=== PATIENT | female | born 1980 | race African-American/Black ===

== ENCOUNTER 2016-10-17 07:52 | Inpatient (IN) ==
[2016-10-17] MEDS ORDERED: LACTATED RINGERS 1,000 ML IV SCH (09:00)
[2016-10-17] MEDS ORDERED: CITRIC ACID/SODIUM CITRATE 30 ML UDCUP PO ONE (09:09)
[2016-10-17] MEDS ORDERED: ceFAZolin 2,000 MG in SODIUM CHLORIDE 0.9% 100 ML IV ONE (09:09)
[2016-10-17] MEDS ORDERED: FAMOTIDINE 20 MG/2 ML VIAL IV ONE (09:09)
[2016-10-17 09:34] LABS: Basophils % 0.2 % (0.0-0.8); Eosinophils % 0.5 % (0.00-10.9); Hematocrit 37.3 VOL% (35.7-47.0); Hemoglobin 12.8 GM/DL (12.0-16.0); Immature Granulocytes % 1.1 %; Immature Granulocytes Absolute 0.07 #; Lymphocytes # 1.1 10*3/uL (1.4-4.0); Lymphocytes % 17.1 % (21.3-54.2); Mean Corpuscular HGB Conc 34.3 GM/DL (32-36); Mean Corpuscular Hemoglobin 31 PG (27-34); Mean Corpuscular Volume 90.5 FL (87-102); Mean Platelet Volume 11.1 FL (9.6-12.0); Monocytes # 0.5 10*3/uL (0.11-0.8); Monocytes % 7.7 % (1.7-12.7); Neutrophils # 4.6 10*3/uL (1.4-7.4); Neutrophils % 73.4 % (38.7-73.9); Platelet Count 156 T/CUMM (130-400); Red Blood Count 4.12 MC/CUMM (3.8-5.5); Red Cell Distribution Width 13.4 % (9.3-17.3); White Blood Count 6.2 T/CUMM (4-12)
[2016-10-17] MEDS ORDERED: OXYTOCIN/LR 20 UNIT/1,000 ML BAG IV ONE ×2 (09:45→11:10)
--- NOTE | 2016-10-17 10:10 | Ultrasound Report ---
History: Leaking amniotic fluid Date: 10/17/2016 Study: Obstetrical ultrasound limited Comparison exam: No previous similar study Real-time ultrasound images are captured and archived. There is a single intrauterine fetus in vertex presentation with a heart rate of 126 bpm. There is oligohydramnios with ELBA of 3.4 cm. The maximum vertical pocket measures 1.9 cm. The placenta is left lateralized without obvious previa. Impression: Single intrauterine fetus in vertex presentation with cardiac activity. Oligohydramnios with ELBA of 3.4 cm PROCEDURE INTERPRETED AT [facility] DEPARTMENT OF RADIOLOGY Final Report Signed by: Dr. Padmini Galvez
--- NOTE | 2016-10-17 11:06 | Operative Note ---
Date of procedure: 10/17/16 Pre-op diagnosis: 37 week gestation SROM labor previous Post-op diagnosis: same Procedure: This is Dr. Herrera dictating operative note: Preoperative diagnosis intrauterine intrauterine at 37 weeks 2. Spontaneous rupture membranes 3. Undesired future fertility 4. Labor 5. Previous Postoperative diagnosis same Procedure repeat low transverse section 2. Bilateral tubal interruption via Filshie clip placement 2 on each side Surgeon Dr. Herrera Anesthesia spinal Findings liveborn [male] infant 7 pounds Apgars 8 9 Complications none Estimated blood loss [400] mL Disposition patient to recovery room in [stable] condition. to nursery in [stable] condition Operative description: Patient was told by Dr. Jesus that the anterior wall of the abdomen might be adherent to the fundus of the uterus and that she had a large posterior fibroid After the risks benefits and alternatives were explained to the patient in detail and informed consent was obtained, the patient was taken to the operating room where she was placed in the supine position. After achieving appropriate anesthesia the abdomen was prepped and draped in the usual sterile fashion. A Bledsoe catheter was placed without difficulty. After the appropriate time out and after adequate anesthesia was ascertained a generous Pfannenstiel skin incision was made in the event there was adherence to the uterus to the anterior abdominal wall and was extended around the previous incision and carried down through the subcutaneous tissue down to the fascia. The fascia was nicked in the midportion and undermined and incised both laterally and cephalad using sharp dissection with the curved Rubio scissors. 2 [place] clamps were used to elevate the rectus fascia superiorly which was bluntly and sharply dissected away from the rectus muscle below. This was repeated inferiorly. The rectus muscles were then bluntly in the midline the peritoneum identified grasped with 2 curved hemostats and entered sharply using the curved Metzenbaum scissors. A bladder blade was then placed in the pelvis and a bladder flap was created off the lower uterine segment using sharp dissection with the Metzenbaum scissors. The bladder blade was then repositioned. A transverse incision was made across the lower uterine segment down to the amnion. Entry into the amnion revealed [clear] amniotic fluid. The uterine incision was then extended laterally using bilateral finger fractionation. Upon palpation the presenting part was [vertex] which was gently elevated out of the pelvis and delivered onto the abdominal wall using appropriate fundal pressure. The 's nose and oropharynx were bulb and DeLee suctioned and the had spontaneous cry delivery. The cord was doubly clamped and cut and the was handed over to the team for care. Cord blood was obtained. The placenta was delivered manually and IV Pitocin antibiotics and Zofran were begun. The uterus was then exteriorized and placed in a wet laparotomy sponge. 2 fingers wrapped around a wet laparotomy sponge were used to remove all residual membranes from the uterine cavity. The uterus was then closed in 2 layers. The first layer of myometrium was closed with #1 Monocryl suture in an inner locking fashion beginning at both angles and overlapping slightly in the midline. The second layer of myometrium was closed with #1 Monocryl suture in a running imbricating stitch beginning at the right angle and continuing the length of the uterine incision. Hemostasis was noted to be excellent. The ampullary portion of each tube was identified and double clipped on each side with Filshie clips right angle to the fallopian tube. The posterior cul-de-sac was then irrigated and cleansed with a wet laparotomy sponge and the uterus was placed back in the abdominal cavity. Both pericolic gutters were then irrigated and cleansed with a wet lap sponge. The tubal sites were inspected and noted to be intact the uterine incision was then re-irrigated and again noted to be hemostatic. All counts were noted to be correct. The subcutaneous tissue was then closed using 3-0 Vicryl suture in a running fashion. The subfascial area was made hemostatic using electrocautery and closed with #1 PDS suture in a running fashion beginning at both angles and overlapping slightly in the midline. The subcutaneous tissue was irrigated and made hemostatic using electrocautery and closed with 2-0 Vicryl suture in a running fashion and the skin was closed with wide skin anne and a sterile pressure bandage was applied to the wound. All sponge needle and instrument counts were correct -3 at the end of the procedure. The patient's urine was [clear] both at the beginning in the end of the procedure. The patient was taken to the recovery room in stable condition Anesthesia: spinal Surgeon / Physician: Kev Herrera Estimated blood loss: other (400) Specimens: none sent Condition: stable Disposition: floor Results - Labs CBC & BMP: 10/17/16 09:29 Discharge Plan - Discharge Medications No Action Vit No.130/Iron/Folic [ Vitamins] 1 each PO DAILY Docusate Sodium Cap [Colace Cap] 100 mg PO DAILY Metoprolol Tartrate 50 mg PO DAILY oxyCODONE/ACETAMINOPHEN 5-325 [Percocet 5-325] 1 mg PO DAILY MDD 2 - Follow Up or Referral - Forms/Instructions
--- NOTE | 2016-10-17 11:08 | OB/GYN History & Physical ---
History of Present Illness Chief complaint: 37 week gestation SROM previous labor History of present illness: Ms. Nickerson is a 35 year old female 2 para [address] Jesus at 37 weeks estimated gestational age who presented with spontaneous rupture membranes. Her nitrazine was equivocal she had an ultrasound performed which showed low ELBA. She was having regular uterine contractions. She is consequently admitted for repeat . Risks benefits alternatives explained patient detail and informed iconsent was obtained. Patient stated that Dr. Jesus felt like that her anterior abdominal wall may be fused to the fundus of the uterus decreasing the mobility of the uterus and that she had a large posterior fibroid. Home Medications Medication Instructions Recorded Confirmed Type Docusate Sodium Cap [Colace Cap] 100 mg PO DAILY 09/22/16 09/22/16 History Metoprolol Tartrate 50 mg PO DAILY 09/22/16 09/22/16 History Vit No.130/Iron/Folic 1 each PO DAILY 09/22/16 09/22/16 History [ Vitamins] oxyCODONE/ACETAMINOPHEN 5-325 1 mg PO DAILY MDD 2 09/22/16 09/22/16 History [Percocet 5-325] Allergies Allergy/AdvReac Type Severity Reaction Status Date / Time clindamycin [From Cleocin] Allergy RASH Verified 10/17/16 08:02 12 point system: reviewed and no additional remarkable complaints except as stated Medical,Surgical,& Family Hx - Social History Smoking Status: Never smoker 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 - Constitutional Vitals: Vital Signs Temp Pulse Resp BP 10/17/16 08:18 97.8 F 90 20 127/70 General appearance: no acute distress - Head Head exam: Present: normal inspection, normocephalic, atraumatic - Neck Neck exam: Present: normal inspection - Respiratory Respiratory exam: Present: clear to auscultation bilaterally - Breast Breasts: as per HPI Menstruation: as per HPI - Cardiovascular Cardiovascular exam: Present: regular rate and rhythm - GI/Abdominal GI/Abdominal exam: Present: normal bowel sounds - Extremities Exam Extremities exam: Present: normal inspection, normal capillary refill - Back Exam Back exam: Present: normal inspection - Neurological Exam Neurological exam: Present: alert, oriented X3 - Psychiatric Psychiatric exam: Present: normal affect, normal mood - Skin Skin exam: Present: normal color Assessment and Plan (1) with 37 weeks completed gestation Status: Acute Current Visit: Yes (2) Previous section Status: Acute Current Visit: Yes (3) Spontaneous rupture of membranes Status: Acute Current Visit: Yes (4) Uterine contractions Status: Acute Current Visit: Yes Results - Labs CBC & BMP: 10/17/16 09:29
[2016-10-17] MEDS ORDERED: oxyCODONE/ACETAMINOPHEN 5-325 MG TABLET PO PRN (11:10)
[2016-10-17] MEDS ORDERED: DIPH/TET/ACEL PERT BOOSTER VACCINE 0.5 ML VIAL IM ONE (11:10)
[2016-10-17] MEDS ORDERED: MEASLES/MUMPS/RUBELLA VACCINE 0.5 ML VIAL SUBCUT ONE (11:10)
[2016-10-17] MEDS ORDERED: BISACODYL 10 MG SUPP RECTAL PRN (11:10)
[2016-10-17] MEDS ORDERED: ACETAMINOPHEN 325 MG TABLET PO PRN (11:10)
[2016-10-17] MEDS ORDERED: WITCH HAZEL PADS 100/JAR TOP PRN (11:10)
[2016-10-17] MEDS ORDERED: LANOLIN 50% CREAM 0.3 OZ TUBE TOP PRN (11:10)
[2016-10-17] MEDS ORDERED: HYDROCORTISONE 2.5% RECTAL CREAM 30 GM TUBE TOP PRN (11:10)
[2016-10-17] MEDS ORDERED: RHO(D) IMMUNE GLOBULIN 300 MCG SYRINGE IM ONE (11:10)
[2016-10-17] MEDS ORDERED: BENZOCAINE 20%/MENTHOL 0.5% SPRAY 56 GM CAN TOP PRN (11:10)
[2016-10-17] MEDS ORDERED: ONDANSETRON 4 MG/2 ML VIAL IV PRN ×2 (11:10→11:16)
[2016-10-17] MEDS ORDERED: diphenhydrAMINE 50 MG/1 ML VIAL IV PRN (11:16)
[2016-10-17] MEDS ORDERED: MORPHINE 10 MG/10 ML VIAL ONE (11:22)
[2016-10-17] MEDS ORDERED: fentaNYL 100 MCG/2 ML VIAL ONE (11:22)
[2016-10-17] MEDS ORDERED: SODIUM CHLORIDE 0.9% 1,000 ML IV SCH (11:30)
--- NOTE | 2016-10-17 11:32 | Anesthesia Post-Op ---
Anesthesia Post OP - Post Ansesthetic Evaluation Patient seen in post op: Yes Resp: within normal limits CV: within normal limits Mental: within normal limits Temp: within normal limits [id number]-Gs-[id number]: within normal limits Nausea and Vomiting: within normal limits Pain: within normal limits
[2016-10-17 12:26] LABS: Apearance,Urine CLEAR (Clear); Bilirubin,Urine Negative (Negative); Blood, Urine Negative (Negative); Glucose,Urine (UA) Negative (Negative); Ketones,Urine Negative (Negative); Nitrite,Urine Negative (Negative); Protein,Urine Negative; Squamous Epithelial Cell,Urine Occasional /HPF (0-10); Urine Specific Gravity 1.001 (1.001-1.035); Urine Urobilinogen < 2.0 EU/DL (0.2-1.0)
[2016-10-17 12:28] LABS: Urine Color Light Yellow (Yellow)
[2016-10-17] MEDS: HYDROmorphone 2 MG/1 ML VIAL IV PRN ×2 (12:30→17:42)
[2016-10-17] MEDS: LACTATED RINGERS 1,000 ML IV SCH ×2 (15:30→23:45)
[2016-10-17] MEDS: oxyCODONE/ACETAMINOPHEN 5-325 MG TABLET PO PRN (20:34)
[2016-10-17] MEDS: SIMETHICONE CHEW 80 MG TABLET PO PRN (20:45)
[2016-10-17] MEDS: DOCUSATE SODIUM 100 MG CAPSULE PO SCH (21:08)
[2016-10-17] MEDS: IBUPROFEN 800 MG TABLET PO PRN (23:32)
[2016-10-18] MEDS: oxyCODONE/ACETAMINOPHEN 5-325 MG TABLET PO PRN ×4 (02:01→21:15)
[2016-10-18 04:38] LABS: Basophils % 0.1 % (0.0-0.8); Eosinophils # 0.1 10*3/uL (0.0-0.87); Eosinophils % 0.5 % (0.00-10.9); Hematocrit 32.5 VOL% (35.7-47.0); Hemoglobin 10.9 GM/DL (12.0-16.0); Immature Granulocytes % 0.6 %; Immature Granulocytes Absolute 0.06 #; Lymphocytes % 9.1 % (21.3-54.2); Mean Corpuscular HGB Conc 33.5 GM/DL (32-36); Mean Corpuscular Hemoglobin 31 PG (27-34); Mean Corpuscular Volume 91.8 FL (87-102); Mean Platelet Volume 11.1 FL (9.6-12.0); Monocytes % 9.2 % (1.7-12.7); Neutrophils # 8.7 10*3/uL (1.4-7.4); Neutrophils % 80.5 % (38.7-73.9); Platelet Count 146 T/CUMM (130-400); Red Blood Count 3.54 MC/CUMM (3.8-5.5); Red Cell Distribution Width 13.2 % (9.3-17.3); White Blood Count 10.8 T/CUMM (4-12)
[2016-10-18 05:41] LABS: Eosinophils 2 % (0-10); Lymphocytes 12 % (20-55); Platelet Estimate Adequate; Segmented Neutrophils 82 % (50-85); Total Cells Counted 100
[2016-10-18] MEDS: IBUPROFEN 800 MG TABLET PO PRN ×2 (05:53→15:15)
[2016-10-18] MEDS ORDERED: COLACE 100 MG PO SCH (09:00)
[2016-10-18] MEDS ORDERED: METOPROLOL TARTRATE 50 MG TABLET PO SCH (09:00)
[2016-10-18] MEDS ORDERED: MULTIVITAMIN (PRENATAL) TABLET PO SCH (09:00)
[2016-10-18] MEDS ORDERED: OXYCODONE PO SCH (09:00)
[2016-10-18] MEDS ORDERED: ACETAMINOPHEN PO SCH (09:00)
[2016-10-18] MEDS: DOCUSATE SODIUM 100 MG CAPSULE PO SCH ×2 (09:17→21:15)
[2016-10-18] MEDS: SIMETHICONE CHEW 80 MG TABLET PO PRN ×2 (09:17→21:15)
[2016-10-18] MEDS ORDERED: METOPROLOL TARTRATE 25 MG TABLET PO ONE ×2 (09:30→09:56)
[2016-10-18] MEDS: MAGNESIUM HYDROXIDE SUSP 30 ML UDCUP PO SCH ×2 (09:41→21:14)
--- NOTE | 2016-10-18 10:49 | OB/GYN Progress Note ---
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 She is tolerating her diet. She is alert and oriented -3 Cardiovascular regular rate and rhythm Lungs clear to auscultation Abdomen soft with appropriate tenderness and bowel sounds are present and her incision is dry no bleeding Is good refill HEENT shows pink conjunctiva assessment 1 day of surgery doing well Plan continue present management with expected DC in a.m. 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
[2016-10-19] MEDS: IBUPROFEN 800 MG TABLET PO PRN ×3 (02:34→17:02)
[2016-10-19] MEDS: SIMETHICONE CHEW 80 MG TABLET PO PRN (02:34)
[2016-10-19] MEDS: oxyCODONE/ACETAMINOPHEN 5-325 MG TABLET PO PRN ×3 (04:09→20:05)
--- NOTE | 2016-10-19 07:44 | Discharge Summary ---
Hospital Course - Hospital Course Hospital Course: Pt admitted at 37 wks in active labor with SROM. She underwent Repeat LTCS, BTL without complications by Dr. 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 Her course has been unremarkable except that she's done very well. Discharge Plan - Discharge Data Disposition: Disch To Home/Self Care Condition at Discharge: Stable Discharge Diet: advance to your usual diet Activity: other (pelvic rest x 6 wks) Hygiene: may shower Weight Bearing at Discharge: full weight bearing Driving: not until seen by doctor Contact your physician if you experience:: fever over 101, Difficulty voiding, Redness or swelling, Nausea/Vomiting, Shortness of breath, Bleeding, pain uncontrolled by pain medications - Discharge Medications New Ibuprofen Tab [Motrin Tab] 800 mg PO Q6H PRN #30 tablet PRN Reason: Pain Moderate (4-7) oxyCODONE/ACETAMINOPHEN 5-325 [Percocet 5-325] 2 tablet PO Q6H PRN #30 tablet PRN Reason: Pain Severe (8-10) No Action Vit No.130/Iron/Folic [ Vitamins] 1 each PO DAILY Docusate Sodium Cap [Colace Cap] 100 mg PO DAILY Metoprolol Tartrate 50 mg PO DAILY oxyCODONE/ACETAMINOPHEN 5-325 [Percocet 5-325] 1 mg PO DAILY MDD 2 - Follow Up or Referral Follow Up: Sara Jesus DO [Physician] - 1 Week - Forms/Instructions Exam - Constitutional Vitals: Period Temp Pulse Resp BP Sys/Adam Pulse Ox Last 24 Hr 96.7 F-98.9 F 76-94 16-20 111-133/59-74 96-100 General appearance: normal weight, no acute distress - Head Head exam: Present: normal inspection, normocephalic - Eye Eye exam: Present: EOMI - Respiratory Respiratory exam: Present: clear to auscultation bilaterally - Cardiovascular Cardiovascular exam: Present: regular rate and rhythm - GI/Abdominal GI/Abdominal exam: Present: soft (fundus firm, incision intact without E/I/D) - Extremities Exam Extremities exam: Present: normal inspection - Neurological Exam Neurological exam: Present: alert, oriented X3 - Psychiatric Psychiatric exam: Present: normal affect, normal mood - Skin Skin exam: Present: normal color, warm DS: Provider Date of admission: 10/17/16 09:00 Attending physician on admission: Beka Tabor Consults: 10/17/16 09:09 Consult to Anesthesiology [CONS] Routine Consulting Provider: Reason for Anesthesiology: Pre-op Clearance 10/17/16 11:10 Consult to Electric Motor Winder [CONS] Routine Consult Electric Motor Winder: Breast Feeding Discharging clinician: Sara Jesus DO Expected date of discharge: 10/19/16
[2016-10-19] MEDS: DOCUSATE SODIUM 100 MG CAPSULE PO SCH ×2 (08:18→20:05)
[2016-10-19] MEDS: METOPROLOL TARTRATE 50 MG TABLET PO SCH (08:19)
[2016-10-19] MEDS: MAGNESIUM HYDROXIDE SUSP 30 ML UDCUP PO SCH ×2 (08:26→20:47)
[2016-10-19] MEDS: LACTATED RINGERS 1,000 ML IV SCH ×3 (22:02→22:03)
[2016-10-20] MEDS: oxyCODONE/ACETAMINOPHEN 5-325 MG TABLET PO PRN ×2 (04:30→11:18)
[2016-10-20] MEDS: IBUPROFEN 800 MG TABLET PO PRN ×2 (04:30→11:19)
[2016-10-20 07:32] VITALS: BP 128/68
[2016-10-20] MEDS: METOPROLOL TARTRATE 50 MG TABLET PO SCH (09:11)
[2016-10-20] MEDS: DOCUSATE SODIUM 100 MG CAPSULE PO SCH (09:11)
[2016-10-20] MEDS: MAGNESIUM HYDROXIDE SUSP 30 ML UDCUP PO SCH (09:12)
== END 2016-10-20 13:20 | disposition home or self-care (01) | DRG 540 ==
LOC: N.LDOUT 07:52 → N.LD 07:54 → N.OB 16:27
PROVIDERS: ADMIT Specialist; ATTEND Obstetrics & Gynecology

== ENCOUNTER 2016-11-02 17:25 | Inpatient (IN) ==
[2016-11-02] MEDS ORDERED: LABETALOL 20 MG/4 ML SYRINGE IV STA (17:42)
[2016-11-02] MEDS ORDERED: LACTATED RINGERS 500 ML IV PRN (17:52)
[2016-11-02] MEDS ORDERED: LACTATED RINGERS 250 ML IV ONE (17:52)
[2016-11-02] MEDS ORDERED: LABETALOL 20 MG/4 ML SYRINGE IV ONE (17:52)
[2016-11-02] MEDS ORDERED: ONDANSETRON 4 MG/2 ML VIAL IV PRN (17:52)
--- NOTE | 2016-11-02 17:55 | Emergency Department Note ---
IAntoni Emily, am scribing for, and in the presence of, Davidson Biancih MD 17: 48. ITash Kevin Lee, MD, personally performed the services described in this documentation, ascribed by Maxine Corrales in my presence, and it is both accurate and complete 755 . 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 Pt had a similar episode last wk and had a baby on Oct 17. 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 Pt is struggling with BP being elevated intermittently. She reports coming to ED on Wednesday in which was started on hydrochlorothiazide and told to contact Dr. Jesus. She called her today when sxs started and advised to come to ED. Pt had on October 17, 2016, not . Pt's BP is 192/109. Onset (ago): hour(s) Consistency: constant, intermittent Severity: mild, moderate Severity scale (1-10): 4 Quality: aching Date of Last Menstrual Period: post Allergies/Adverse Reactions: Allergies Allergy/AdvReac Type Severity Reaction Status Date / Time clindamycin [From Cleocin] Allergy RASH Verified 10/17/16 08:02 fish oil Allergy Unknown/Unable Verified 10/23/16 09:44 to obtain Home Medications: Home Medications Medication Instructions Recorded Confirmed Type Docusate Sodium Cap [Colace Cap] 100 mg PO QAM 09/22/16 10/23/16 History Ibuprofen Tab [Motrin Tab] 800 mg PO Q6H PRN #30 tablet 10/19/16 10/23/16 Rx oxyCODONE/ACETAMINOPHEN 5-325 2 tablet PO Q6H PRN #30 tablet 10/19/16 10/23/16 Rx [Percocet 5-325] Albuterol Inhaler [Proventil 1 puff INH Q4H PRN 10/23/16 10/23/16 History Inhaler] Metoprolol Succinate Xl [Toprol Xl] 50 mg PO QAM 10/23/16 10/23/16 History Ses707/Iron/l-Mefol/Omega3/Dha 1 each PO QAM 10/23/16 10/23/16 History [ Plus-Dha Combo Pack] hydroCHLOROthiazide 12.5 mg PO DAILY #20 capsule 10/23/16 Rx [Hydrochlorothiazide] Review of System - Review of System 12 point system: reviewed and no additional remarkable complaints except as stated - Review of System Constitutional: Present: other (elevated BP). Absent: fever Respiratory: Absent: respiratory distress Cardiovascular: Present: chest pain. Absent: syncope Gastrointestinal: Absent: abdominal pain, nausea, vomiting Musculoskeletal: Present: neck pain Neurological: Present: headache, numbness (in face). Absent: paresthesias, confusion, abnormal gait Psychiatric: Absent: anxiety Medical,Surgical,& Family Hx - Medical History Cardio: History of: Hypertension, Cardiovascular Problems (PSVT, PAC, PULMONARY HTN, SLEEP APNEA) Neurology: No history of: Seizures Endocrine: History of: Thyroid Disorder (THYROID NODULE) Respiratory: History of: Pulmonary Hypertension (DIAGNOSED DURING THIS ) Reproductive: History of: Abnormal Pap Smear - Surgical History Reproductive Surgeries: Surgical HX of;: Section - Family History Family History: Reports;: Family Cancer (BREAST CANCER MOTHER , MGM, AUNT) - Social History Smoking Status: Never smoker Functional capacity: independent ambulation Exam Vital Signs: Vital Signs Temperature 98.3 F 11/02/16 17:27 Pulse Rate 69 11/02/16 17:27 Respiratory Rate 20 11/02/16 17:27 Blood Pressure 192/109 11/02/16 17:27 O2 Sat by Pulse Oximetry 99 11/02/16 17:27 - General General appearance: alert, in no apparent distress, other (tearful on exam) - Head Head exam: Present: atraumatic, normocephalic - Eye Eye exam: Present: PERRL, EOMI - ENT ENT exam: Present: mucous membranes moist. Absent: mucous membranes dry - Neck Neck exam: Present: full ROM, trachea midline. Absent: tenderness - Chest Chest inspection: Present: symmetric chest wall rise. Absent: tenderness - Respiratory Respiratory exam: Present: normal lung sounds bilaterally. Absent: respiratory distress - Cardiovascular Cardiovascular exam: Present: regular rate, normal rhythm, normal heart sounds - Abdominal Exam Abdominal exam: Present: soft, other ( scar is clean, dry and intact). Absent: tenderness - Extremities Exam Extremities exam: Present: full ROM. Absent: tenderness, pedal edema - Neurological Exam Neurological exam: Present: alert, oriented X3, CN II-XII intact. Absent: motor sensory deficit - Psychiatric Psychiatric exam: Present: normal affect - Skin Skin exam: Present: warm, dry Course Course Narrative: Dr. Jesus was consulted and was told to send to Labor & Delivery giving her labetalol before leaving ED for further treatment. Pt needs closer care by L and D staff will transfer for further care Disposition Clinical Impression: Preeclampsia Case discussed with: patient Disposition: Still a Patient Condition: Stable
[2016-11-02] MEDS ORDERED: LACTATED RINGERS 1,000 ML IV SCH (18:00)
[2016-11-02 18:08] LABS: Basophils % 0.3 % (0.0-0.8); Eosinophils # 0.1 10*3/uL (0.0-0.87); Eosinophils % 1.4 % (0.00-10.9); Hematocrit 41.2 VOL% (35.7-47.0); Hemoglobin 13.7 GM/DL (12.0-16.0); Immature Granulocytes % 0.2 %; Immature Granulocytes Absolute 0.01 #; Lymphocytes # 1.4 10*3/uL (1.4-4.0); Lymphocytes % 24.2 % (21.3-54.2); Mean Corpuscular HGB Conc 33.3 GM/DL (32-36); Mean Corpuscular Hemoglobin 30 PG (27-34); Mean Corpuscular Volume 91.4 FL (87-102); Mean Platelet Volume 10.9 FL (9.6-12.0); Monocytes # 0.4 10*3/uL (0.11-0.8); Monocytes % 6.3 % (1.7-12.7); Neutrophils # 3.9 10*3/uL (1.4-7.4); Neutrophils % 67.6 % (38.7-73.9); Platelet Count 237 T/CUMM (130-400); Red Blood Count 4.51 MC/CUMM (3.8-5.5); Red Cell Distribution Width 12.2 % (9.3-17.3); White Blood Count 5.8 T/CUMM (4-12)
--- NOTE | 2016-11-02 18:22 | CT Report ---
CT head/brain wo con Indication: Headache. CT BRAIN WITHOUT CONTRAST DLP: 915 mGy*cm. One or more of the following dose reduction techniques was used: Automated exposure control, adjustment of the mA and/or kV according the patient size, or use of iterative reconstruction techniques. Comparison: None. Date of admission: 11/02/2016. Technique: Axial noncontrast CT images of the brain were obtained. Findings: No acute hemorrhage, mass or mass effect. Ventricles and sulci are appropriate for age. Sancehz-white junction is maintained throughout. No focal bone lesions are shown. Visualized paranasal sinuses are clear. Impression: Negative CT brain without contrast. PROCEDURE INTERPRETED AT [facility] DEPARTMENT OF RADIOLOGY Final Report Signed by: Faizan Aguilar M.D.
--- NOTE | 2016-11-02 18:24 | XRay Report ---
XR chest 1V portable Indication: Shortness of breath. Chest one view: The heart size and mediastinal contour are normal. The lungs and pleural spaces are clear. Bones are unremarkable. Impression: Negative chest. PROCEDURE INTERPRETED AT [facility] DEPARTMENT OF RADIOLOGY Final Report Signed by: Faizan Aguilar M.D.
[2016-11-02 18:33] LABS: Alanine Aminotransferase 33 U/L (13-56); Albumin 3.2 G/DL (3.4-5.0); Alkaline Phosphatase 123 U/L (45-117); Aspartate Amino Transferase 20 U/L (0-37); Blood Urea Nitrogen 18 MG/DL (7-18); Calcium 8.4 MG/DL (8.5-10.1); Glucose 101 MG/DL (74-106); Osmolality,Calculated 280.4 MOS/KG (273-304); Potassium 3.8 MMOL/L (3.5-5.1); Sodium 140 MMOL/L (136-145); Total Protein 7.7 G/DL (6.4-8.3); Troponin I Only < 0.015 NG/ML (0.00-0.045)
[2016-11-02] MEDS: ACETAMINOPHEN 500 MG TABLET PO PRN (20:13)
[2016-11-02] MEDS: LABETALOL 200 MG TABLET PO SCH (20:27)
--- NOTE | 2016-11-02 20:35 | OB/GYN History & Physical ---
History of Present Illness Chief complaint: Pt called office today c/o high BPs and was told to go to ER for evaluation History of present illness: Ms. Nickerson is a 35 year old female, now 2w2d post C/S for SROM with prior C/ S. Her course is noted for an ER visit on 10/23/16 for HTN, CP and SOB with negative evaluation. She was started on metoprolol and HCTZ that she has been taking daily since. She states she took her meds today about 2 pm. She has normally been taking them by 10 am each day until today. She has had complaints also of pain from her neck to her low back since delivery that she is concerned is due to her spinal. All labs are wnl. CT head today wnl. ECG wnl today. Her back pain has her quite concerned because she had a cousin who at 2 months from meningitis reportedly secondary to her spinal or epidural. Pt's back pain is from her neck to her low back she reports has been present since delivery. I saw her on 10/27/16 and placed her on Toradol to see if this helped with her discomfort. She stated this did help with her pain and she was feeling better until today. Her BP on presentation to ER was 190s/ 110s and responded well to IV Labetolol. Pt is non-toxic in appearance. Home Medications Medication Instructions Recorded Confirmed Type Docusate Sodium Cap [Colace Cap] 100 mg PO QAM 09/22/16 10/23/16 History Ibuprofen Tab [Motrin Tab] 800 mg PO Q6H PRN #30 tablet 10/19/16 10/23/16 Rx oxyCODONE/ACETAMINOPHEN 5-325 2 tablet PO Q6H PRN #30 tablet 10/19/16 10/23/16 Rx [Percocet 5-325] Albuterol Inhaler [Proventil 1 puff INH Q4H PRN 10/23/16 10/23/16 History Inhaler] Metoprolol Succinate Xl [Toprol Xl] 50 mg PO QAM 10/23/16 10/23/16 History Skj886/Iron/l-Mefol/Omega3/Dha 1 each PO QAM 10/23/16 10/23/16 History [ Plus-Dha Combo Pack] hydroCHLOROthiazide 12.5 mg PO DAILY #20 capsule 10/23/16 Rx [Hydrochlorothiazide] Allergies Allergy/AdvReac Type Severity Reaction Status Date / Time clindamycin [From Cleocin] Allergy RASH Verified 10/17/16 08:02 fish oil Allergy Unknown/Unable Verified 10/23/16 09:44 to obtain Medical,Surgical,& Family Hx - Medical History Cardio: History of: Hypertension, Cardiovascular Problems (PSVT, PAC, PULMONARY HTN, SLEEP APNEA) Neurology: No history of: Seizures Endocrine: History of: Thyroid Disorder (THYROID NODULE) Respiratory: History of: Pulmonary Hypertension (DIAGNOSED DURING THIS ) Reproductive: History of: Abnormal Pap Smear - Surgical History Reproductive Surgeries: Surgical HX of;: Section - Family History Family History: Reports;: Family Cancer (BREAST CANCER MOTHER , MGM, AUNT) - Social History 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: Vital Signs Temp Pulse Resp BP BP Pulse Ox 11/02/16 18:54 80 18 158/109 11/02/16 17:27 98.3 F 69 20 192/109 99 General appearance: normal weight, no acute distress - Head Head exam: Present: normal inspection, normocephalic - Eye Eye exam: Present: EOMI - Respiratory Respiratory exam: Present: clear to auscultation bilaterally - Cardiovascular Cardiovascular exam: Present: regular rate and rhythm - GI/Abdominal GI/Abdominal exam: Present: soft (nontender , Incision healing well) - Extremities Exam Extremities exam: Present: normal inspection - Back Exam Back exam: Present: normal inspection - Neurological Exam Neurological exam: Present: alert, oriented X3 - Psychiatric Psychiatric exam: Present: normal affect, normal mood - Skin Skin exam: Present: normal color, warm Assessment and Plan (1) Hypertension in , condition Status: Acute Assessment and plan: Continue twice daily Labetolol. IV meds as indicated. Will ask Cardiology to please evaluate pt and treat as indicated . Current Visit: Yes (2) Midline back pain Status: Acute Assessment and plan: Will ask Neurology to evaluate and treat pt as indicated especially in light of her significant family history of a cousin dying 2 months from meningitis although pt is non-toxic in appearance with a normal WBC and no fever , and normal Head CT. Current Visit: Yes Results - Labs CBC & BMP: 11/02/16 17:59 11/02/16 17:59 Lab Results: I have reviewed the past 24 hour labs
[2016-11-02] MEDS ORDERED: MEPERIDINE 25 MG/1 ML VIAL IV PRN (21:02)
[2016-11-02] MEDS ORDERED: ALBUTEROL 2.5 MG/3 ML NEB RESP TX PRN (21:06)
[2016-11-02 22:31] LABS: Apearance,Urine CLEAR (Clear); Bilirubin,Urine Negative (Negative); Blood, Urine Moderate mg/dL (Negative); Glucose,Urine (UA) Negative (Negative); Ketones,Urine Negative (Negative); Mucus,Urine Occasional /LPF (Occasional); Nitrite,Urine Negative (Negative); Protein,Urine Negative; RBC,Urine 1 /HPF (0-4); Urine Color Yellow (Yellow); Urine Specific Gravity 1.011 (1.001-1.035); Urine Urobilinogen < 2.0 EU/DL (0.2-1.0); WBC,Urine 5 /HPF (0-6)
[2016-11-02 22:44] LABS: Barbiturates Screen,Urine Negative (Negative); Benzodiazepines Screen,Urine Negative (Negative); Cannabinoid Screen,Urine Negative (Negative); Opiate Screen,Urine Negative (Negative); Phencyclidine Screen,Urine Negative (Negative)
[2016-11-03] MEDS: ACETAMINOPHEN 500 MG TABLET PO PRN ×4 (02:17→23:20)
--- NOTE | 2016-11-03 07:43 | EKG Report ---
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
[2016-11-03] MEDS: LABETALOL 200 MG TABLET PO SCH (08:22)
[2016-11-03] MEDS: hydroCHLOROthiazide 25 MG TABLET PO SCH (09:50)
[2016-11-03] MEDS ORDERED: hydrALAZINE 20 MG/1 ML VIAL IV PRN (13:40)
--- NOTE | 2016-11-03 13:43 | Cardiology Consult Note ---
Stefani Gregory April RN, am scribing for, and in the presence of, Radha Royal MD 13:42. Assessment and Plan - Time spent with patient Time spent with patient: Greater than 30 minutes (Due to assessment, planning, documentation, medication review) (1) hypertension Status: Acute Current Visit: Yes (2) History of PSVT (paroxysmal supraventricular tachycardia) Status: Chronic Current Visit: No (3) History of pulmonary hypertension Status: Chronic Current Visit: Yes (4) Chest pain Status: Acute Current Visit: Yes History of Present Illness - Data of Consult Patient: new to practice Consult date: 11/02/16 Requesting Physician: Sara Jesus - Consult Narrative Reason for consult: Chest pain, elevated blood pressure History of present illness: Yarn Sizer: Dr. Gomez Ms. Nickerson is a 35 year old female who is routinely followed by Dr. Gomez for PSVT since she was a teenager. She has been on Toprol xl 50 mg daily for this. She also has a history of pulmonary hypertension, thyroid nodule, and uterine fibroids. She recently delivered her second child by C- section on October 17 and has had a tubal ligation. She denies having any hypertension or other difficulties during this . She does not smoke and denies any illegal drug use. Ms. Nickerson says she presented to the emergency department on October 23 with elevated blood pressure and edema. She was seen and discharged home on hydrochlorothiazide. Since then her swelling has improved, but her blood pressure continues to be elevated. She is short of breath with this and she does have chest pain when her blood pressure is elevated. She has also had some blurred vision. Yesterday her blood pressure got to 175/101 and she presented to the emergency department for further evaluation. On the way to the emergency department she noticed that her face began to get numb. EKG showed sinus rhythm heart rate of 61 and was unremarkable. She had a negative CT of the brain and chest x-ray. Troponin has been negative 2. On presentation to the emergency department her blood pressure was 192/109. He was given labetalol 20 mg IV and it did improve slightly. She does not have a history of hypertension, and did not have any -induced hypertension. Of note, she is status post 2 weeks ago, which was premature onset. This morning she is seen resting in bed. She denies any chest pain, as of breath, blurry vision, or face numbness. She does not have any other neurologic deficit she does continue to have a headache and she reports some neck and back pain. This was not present after her , but recently began approximately 1 week ago. Blood pressure this morning was 162/92. An echo Doppler has been ordered. Assessment/plan: 1. hypertension-change metoprolol to Coreg 12.5 twice daily, add hydralazine 10 mg IV as needed 2. History of PSVT-she has been in sinus rhythm during this admission 3. History of pulmonary hypertension-an echo has been ordered, we will review 4. Chest pain-this is felt to be secondary to symptomatic hypertension CC: Sara Jesus, - Home Medications and Allergies Home Medications: Home Medications Medication Instructions Recorded Confirmed Type Docusate Sodium Cap [Colace Cap] 200 mg PO QAM 09/22/16 11/02/16 History Ibuprofen Tab [Motrin Tab] 800 mg PO Q6H PRN #30 tablet 10/19/16 11/02/16 Rx oxyCODONE/ACETAMINOPHEN 5-325 2 tablet PO Q6H PRN #30 tablet 10/19/16 11/02/16 Rx [Percocet 5-325] Albuterol Inhaler [Proventil 1 puff INH Q4H PRN 10/23/16 11/02/16 History Inhaler] Metoprolol Succinate Xl [Toprol Xl] 50 mg PO QAM 10/23/16 11/02/16 History Axk606/Iron/l-Mefol/Omega3/Dha 1 each PO QAM 10/23/16 11/02/16 History [ Plus-Dha Combo Pack] hydroCHLOROthiazide 12.5 mg PO DAILY #20 capsule 10/23/16 11/02/16 Rx [Hydrochlorothiazide] Acetaminophen Tab [Tylenol Tab] 1,000 mg PO Q8HR 11/02/16 11/02/16 History Allergies/Adverse Reactions: Allergies Allergy/AdvReac Type Severity Reaction Status Date / Time clindamycin [From Cleocin] Allergy RASH Verified 10/17/16 08:02 fish oil Allergy Unknown/Unable Verified 10/23/16 09:44 to obtain 12 point system: reviewed and no additional remarkable complaints except as stated - Constitutional Constitutional: Present: as per HPI - EENT Eyes: Present: blurry vision Nose, mouth and throat: Present: headache(s), neck pain - Cardiovascular Cardiovascular: Present: chest pain at rest, dyspnea, dyspnea on exertion. Absent: edema, radiating jaw, neck or arm pain - Respiratory Respiratory: Present: dyspnea, dyspnea on exertion. Absent: hemoptysis, wheezing - Musculoskeletal Musculoskeletal: Present: back pain Medical,Surgical,& Family Hx - Medical History Cardio: History of: Hypertension, Cardiovascular Problems (PSVT, PAC, PULMONARY HTN, SLEEP APNEA) HEENT: History of: Eye Problem (glasses for nearsightedness) Endocrine: History of: Thyroid Disorder (THYROID NODULE) Respiratory: History of: Asthma (Uses Proventil PRN), Pulmonary Hypertension ( DIAGNOSED DURING THIS ) Genitourinary: History of: Problems (states sometimes has bladder spasms) Reproductive: History of: Abnormal Pap Smear, Ovarian Cysts, Reproductive Problems (uterine fibroid) Other: History of: Miscellaneous Medical Problems (excessive daytime sleepiness , sleep apnea) - Surgical History Reproductive Surgeries: Surgical HX of;: Section - Family History Family History: Reports;: Family Cancer (BREAST CANCER MOTHER , MGM, AUNT), Family Diabetes (FATHER, PATERNAL UNCLE, COUSINS), Family Hypertension (father) , Additional Family History (Cousin from meningitis 2 months post-) - Social History Smoking Status: Never smoker Frequency of Alcohol Use: None Type of Drug Use: None Physical Examination Vital Signs Temp Pulse Resp BP Pulse Ox 98.3 F 69 20 192/109 99 11/02/16 17:27 11/02/16 17:27 11/02/16 17:27 11/02/16 17:27 11/02/16 17:27 General: Present: Appears Well, No Apparent Distress HEENT: Present: PERRL, Mucus Membranes Moist Neck: Present: Supple Neck, Midline Trachea, No Masses, No Bruit Cardiac: Present: Reg Rate and Rhythm, No Murmur Lungs: Present: Normal Breath Sounds, No Wheeze, Rales, Rhonchi Neuro: Present: Motor Function Intact, Sensory Function Intact. Absent: Numbness, Resting Tremor, Essential Tremor Abdomen: Present: Soft, Active Bowel Sounds, Non-Tender, Other (Protuberant) Skin: Absent: Rash, Suspicious Lesions Musculoskeletal: Present: No Pain, Normal Range of Motion Gait: Present: Normal Gait Extremities: Present: Normal Gait, No Edema, Normal Upper Extr. Pulses, Normal Lower Extr. Pulses Result/EKG - Labs CBC & BMP: 11/02/16 17:59 11/02/16 17:59 Lab Results: I have reviewed the past 24 hour labs Labs: Laboratory Results - last 24 hr 11/02/16 11/02/16 11/02/16 17:59 17:59 17:59 WBC 5.8 RBC 4.51 Hgb 13.7 Hct 41.2 MCV 91.4 MCH 30 MCHC 33.3 RDW 12.2 Plt Count 237 MPV 10.9 Neut % (Auto) 67.6 Lymph % (Auto) 24.2 [place] % (Auto) 6.3 Eos % (Auto) 1.4 Baso % (Auto) 0.3 Neut # (Auto) 3.9 Lymph # (Auto) 1.4 [place] # (Auto) 0.4 Eos # (Auto) 0.1 Baso # (Auto) 0.0 Immature Gran % 0.2 Nucleated RBC % 0.0 Immature Gran # 0.01 Nucleated RBCs # 0.00 Immature Plt Fraction 0.0 Sodium 140 Potassium 3.8 Chloride 106 Carbon Dioxide 25 Anion Gap 12.8 BUN 18 Creatinine 0.80 GFR Calculation 122 BUN/Creatinine Ratio 22.00 H Glucose 101 Calculated Osmolality 280.4 Calcium 8.4 L Magnesium 2.0 Total Bilirubin 0.50 AST 20 ALT 33 Alkaline Phosphatase 123 H Troponin I < 0.015 B-Natriuretic Peptide 15 Total Protein 7.7 Albumin 3.2 L Globulin 4.5 H Albumin/Globulin Ratio 0.7 L Urine Color Urine Appearance Urine pH Ur Specific [place] Urine Protein Urine Glucose (UA) Urine Ketones Urine Blood Urine Nitrate Urine Bilirubin Urine Urobilinogen Urine Leukocytes Urine RBC Urine WBC Urine Mucus Ur Culture Indicated? Urine Opiates Screen Ur Barbiturates Screen Ur Phencyclidine Scrn U Amphetamine/Methamph U Benzodiazepines Scrn U Cocaine Metab Screen U Cannabinoids Screen Blood Type Antibody Screen 11/02/16 11/02/16 11/02/16 17:59 22:00 22:00 WBC RBC Hgb Hct MCV MCH MCHC RDW Plt Count MPV Neut % (Auto) Lymph % (Auto) [place] % (Auto) Eos % (Auto) Baso % (Auto) Neut # (Auto) Lymph # (Auto) [place] # (Auto) Eos # (Auto) Baso # (Auto) Immature Gran % Nucleated RBC % Immature Gran # Nucleated RBCs # Immature Plt Fraction Sodium Potassium Chloride Carbon Dioxide Anion Gap BUN Creatinine GFR Calculation BUN/Creatinine Ratio Glucose Calculated Osmolality Calcium Magnesium Total Bilirubin AST ALT Alkaline Phosphatase Troponin I B-Natriuretic Peptide Total Protein Albumin Globulin Albumin/Globulin Ratio Urine Color Yellow Urine Appearance Clear Urine pH 6.0 Ur Specific [place] 1.011 Urine Protein Negative Urine Glucose (UA) Negative Urine Ketones Negative Urine Blood Moderate Urine Nitrate Negative Urine Bilirubin Negative Urine Urobilinogen < 2.0 H Urine Leukocytes Trace Urine RBC 1 Urine WBC 5 Urine Mucus Occasional Ur Culture Indicated? Not indicated Urine Opiates Screen Negative Ur Barbiturates Screen Negative Ur Phencyclidine Scrn Negative U Amphetamine/Methamph Negative U Benzodiazepines Scrn Negative U Cocaine Metab Screen Negative U Cannabinoids Screen Negative Blood Type O POSITIVE Antibody Screen Negative 11/03/16 10:34 WBC RBC Hgb Hct MCV MCH MCHC RDW Plt Count MPV Neut % (Auto) Lymph % (Auto) [place] % (Auto) Eos % (Auto) Baso % (Auto) Neut # (Auto) Lymph # (Auto) [place] # (Auto) Eos # (Auto) Baso # (Auto) Immature Gran % Nucleated RBC % Immature Gran # Nucleated RBCs # Immature Plt Fraction Sodium Potassium Chloride Carbon Dioxide Anion Gap BUN Creatinine GFR Calculation BUN/Creatinine Ratio Glucose Calculated Osmolality Calcium Magnesium Total Bilirubin AST ALT Alkaline Phosphatase Troponin I < 0.015 B-Natriuretic Peptide Total Protein Albumin Globulin Albumin/Globulin Ratio Urine Color Urine Appearance Urine pH Ur Specific [place] Urine Protein Urine Glucose (UA) Urine Ketones Urine Blood Urine Nitrate Urine Bilirubin Urine Urobilinogen Urine Leukocytes Urine RBC Urine WBC Urine Mucus Ur Culture Indicated? Urine Opiates Screen Ur Barbiturates Screen Ur Phencyclidine Scrn U Amphetamine/Methamph U Benzodiazepines Scrn U Cocaine Metab Screen U Cannabinoids Screen Blood Type Antibody Screen - Diagnostic Findings Procedure: Chest x-ray: report reviewed by me - EKG EKG results: interpreted by me EKG shows: sinus rhythm Lele Gregory Jennifer, MD, personally performed the services described in this documentation, ascribed by Jocelyn Ko RN in my presence, and it is both accurate and complete .
--- NOTE | 2016-11-03 16:40 | ECHO Report ---
Eryn Nickerson 11/03/2016 Exam Date: 09:55 Referring Physician: Heather Carrizales Technologist: AXEL Age: 35 Ht (in): 63 Wt (lb): 184 FExam [facility] Gender: Echo [id number]: preclampsia, HTN, Mid line back painIndications: BP: 192 / 92 HR: 64 SinusRhythm: Technical Quality: IMPRESSIONS Left ventricular ejection fraction is estimated at 60 %. Diastolic parameters are normal. No regional wall motion abnormality. Tricuspid regurgitation velocities suggest a RVSP of 23 mmHg + RAP. MEASUREMENTS (Male / Female) Normal Values 2D ECHO LV Diastolic Diameter PLAX 4.4 cm 4.2 - 5.9 / 3.9 - 5.3 cm LV Systolic Diameter PLAX 3.3 cm LV Fractional Shortening PLAX 25.9 % IVS Diastolic Thickness 1.0 cm 0.6 - 1.0 / 0.6 - 0.9 cm LVPW Diastolic Thickness 1.0 cm 0.6 - 1.0 / 0.6 - 0.9 cm Aortic Root Diameter 2.2 cm LA Systolic Diameter LX 3.2 cm 3.0 - 4.0 / 2.7 - 3.8 cm DOPPLER TR Peak Velocity 242.0 cm/s TR Peak Gradient 23.4 mmHg FINDINGS Left Ventricle Normal left ventricular cavity size. Left ventricular ejection fraction is estimated at 60 %. Diastolic parameters are normal. No regional wall motion abnormality. Right Ventricle Normal right ventricular size. Right Atrium Normal right atrial size. Left Atrium Normal left atrial size. Mitral Valve Morphologically normal mitral valve. Trace mitral valve regurgitation. Aortic Valve The aortic valve is trileaflet, delicate and has normal motion. Tricuspid Valve Morphologically normal tricuspid valve. Trace tricuspid valve regurgitation. Tricuspid regurgitation velocities suggest a RVSP of 23 mmHg + RAP. Pulmonic Valve Morphologically normal pulmonic valve. Trace pulmonary valve regurgitation. Pericardium No pericardial effusion. Aorta Normal size aortic root and proximal ascending aorta. Dotty Young (Electronically Signed) 03 November 2016 Final Date: 16:39
--- NOTE | 2016-11-03 20:03 | OB/GYN Progress Note ---
Assessment and Plan (1) Hypertension in , condition Status: Acute Assessment and plan: Dr. Royal's med changes noted. BP is better on most recent check. 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 Pt did not appear ill. BPs with still some significant elevations noted this morning so I did add back her HCTZ daily. Dr. Royal's management noted. Echo report noted. Expect home tomorrow if BPs remain stable and no other significant findings. Nurse did find out from pt's aunt that pt's cousin of Lemierre's syndrome with septic thrombophlebitis from URI at 3 months Exam HOSE CEMENTER - Constitutional Vitals: Vital Signs Temp Pulse Resp BP Pulse Ox 11/03/16 16:00 97.4 F L 82 20 142/78 99 11/03/16 11:41 97.5 F L 64 20 161/90 98 11/03/16 07:41 20 11/03/16 07:13 98 F 64 20 162/92 100 11/03/16 07:00 20 11/03/16 04:30 98.5 F 63 20 153/89 97 11/03/16 03:00 20 11/03/16 02:17 65 18 145/77 97 11/03/16 01:00 18 11/03/16 00:00 97.8 F 59 L 18 162/77 98 11/02/16 21:13 59 L 18 153/88 100 11/02/16 20:20 98.5 F 60 18 190/98 99 General appearance: normal weight, no acute distress - Head Head exam: Present: normal inspection, normocephalic - Neurological Exam Neurological exam: Present: alert, oriented X3 - Psychiatric Psychiatric exam: Present: normal affect, normal mood - Skin Skin exam: Present: normal color, warm Results - Labs CBC & BMP: 11/02/16 17:59 11/02/16 17:59 Lab Results: I have reviewed the past 24 hour labs
[2016-11-03] MEDS: CARVEDILOL 12.5 MG TABLET PO SCH (21:05)
[2016-11-04] MEDS: hydroCHLOROthiazide 25 MG TABLET PO SCH (08:44)
[2016-11-04] MEDS: ACETAMINOPHEN 500 MG TABLET PO PRN (08:44)
[2016-11-04] MEDS: CARVEDILOL 12.5 MG TABLET PO SCH (08:44)
--- NOTE | 2016-11-04 09:03 | Discharge Summary ---
Hospital Course - Hospital Course Hospital Course: Pt admitted through ER with elevated BPs that have improved markedly with medication change to Coreg made by Dr Royal. Pt with persistent CHAUDHARY with associated pain down neck and back. Pain gets better with Tylenol and then returns. At this time awaiting consult by Neurology for further recommendations. If not further changes in care per Neurology then expect dismissal today. Diagnosis - Discharge Diagnosis (1) Hypertension in , condition Status: Acute (2) Midline back pain Status: Acute Discharge Plan - Discharge Data Disposition: Disch To Home/Self Care Condition at Discharge: Stable Discharge Diet: regular diet Activity: other (pelvic rest until 6 wks ) Hygiene: may shower Weight Bearing at Discharge: full weight bearing Driving: no restrictions Contact your physician if you experience:: fever over 101, Difficulty voiding, Redness or swelling, Nausea/Vomiting, Shortness of breath, Bleeding, pain uncontrolled by pain medications - Discharge Medications No Action Docusate Sodium Cap [Colace Cap] 200 mg PO QAM Ibuprofen Tab [Motrin Tab] 800 mg PO Q6H PRN #30 tablet PRN Reason: Pain Moderate (4-7) oxyCODONE/ACETAMINOPHEN 5-325 [Percocet 5-325] 2 tablet PO Q6H PRN #30 tablet PRN Reason: Pain Severe (8-10) hydroCHLOROthiazide [Hydrochlorothiazide] 12.5 mg PO DAILY #20 capsule Metoprolol Succinate Xl [Toprol Xl] 50 mg PO QAM [id number]/Iron/l-Mefol/Omega3/Dha [ Plus-Dha Combo Pack] 1 each PO QAM Albuterol Inhaler [Proventil Inhaler] 1 puff INH Q4H PRN PRN Reason: Shortness Of Breath/Wheezing Acetaminophen Tab [Tylenol Tab] 1,000 mg PO Q8HR - Follow Up or Referral Follow Up: Sara Jesus DO [Physician] - (as scheduled) - Forms/Instructions Exam - Constitutional Vitals: Period Temp Pulse Resp BP Sys/Adam Pulse Ox Last 24 Hr 97.3 F-98.7 F 61-90 18-20 113-161/70-90 98-99 Discharge Results Labs on day of discharge: Labs from last 24 hours 11/03/16 10:34 Troponin I < 0.015 DS: Provider Date of admission: 11/02/16 17:52 Primary care physician: YAMILET ALBA Attending physician on admission: Sara Jesus DO Consults: 11/02/16 17:52 Consult to Anesthesiology [CONS] Routine Consulting Provider: Reason for Anesthesiology: Epidural Consult Comment: Epidural for pain managment 11/02/16 21:06 Consult to Physician [CONS] Routine Comment: Per Dr. eJsus, notify in a.m. (11/03/16) Consulting Provider: Kate Moran When should Consulting Provider be notified: In am Person Notified: Serenity Nunez on Telemetry Date Notified: 11/03/16 Time Notified: 07:25 Consult Notification Comment: Called and spoke with Mrs. Coombs. States Mrs. Kate Moran is aware of Mrs. Nickerson in room 154 and will see her today. 11/02/16 21:13 Consult to Physician [CONS] Routine Comment: Per Dr. Jesus, notify in a.m. (11/03/16) Consulting Provider: Manjinder Diaz When should Consulting Provider be notified: In am Discharging clinician: Sara Jesus DO
[2016-11-04 16:28] VITALS: BP 120/69
--- NOTE | 2016-11-04 17:26 | Cardiology Progress Note ---
Stefani Gregory April RN, am scribing for, and in the presence of, Radha Royal MD 17:26. Assessment and Plan (1) hypertension Status: Acute Current Visit: Yes (2) History of PSVT (paroxysmal supraventricular tachycardia) Status: Chronic Current Visit: No (3) History of pulmonary hypertension Status: Chronic Current Visit: Yes (4) Chest pain Status: Acute Current Visit: Yes Cardiology - PN: Subj Interval history: Print Project Manager: Dr. Gomez Summary: She has a reported history of SVT with onset in adolescence and pulmonary hypertension. 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 She was admitted to the hospital with Headache, neck and back pain, facial numbness and uncontrolled hypertension. She had some associated chest pain when her blood pressure was high. She had a negative CT of the brain and chest x-ray. Troponin has been negative 2. November 03, 2016: This morning she is seen resting in bed. She denies any chest pain, shortness of breath, blurry vision, or face numbness. She does not have any other neurologic deficit she does continue to have a headache and she reports some neck and back pain. This was not present after her , but recently began approximately 1 week ago. Blood pressure this morning was 162/ 92. An echo Doppler has been ordered. November 04, 2016: Ms. Nickerson states she feels much better today. She is no longer having any chest pain, shortness of breath, blurry vision and or face numbness. She does continue to have some headaches and lightheadedness as well as neck and back pain. Her blood pressure has responded well to the medication change. Echocardiogram with ejection fraction of 60%, no pulmonary hypertension. Assessment/plan: 1. hypertension-metoprolol was changed to Coreg 12.5 twice daily. Blood pressure has improved. 2. History of PSVT-she has been in sinus rhythm during this admission 3. History of pulmonary hypertension 4. Chest pain-this is felt to be secondary to symptomatic hypertension. This has resolved. She is scheduled to be discharged home today. I will discharge her home on the Coreg. I have educated the patient and her mother to continue monitoring her blood pressure as this may improve while her physiology continues to change. She is to follow-up with Dr. Gomez, her usual career developer. Exam (Progress Note) - Constitutional Vitals: Period Temp Pulse Resp BP Sys/Adam Pulse Ox Last 24 Hr 97.3 F-98.7 F 61-90 18-20 113-142/70-82 98-99 Exam: General: Present: Appears Well, No Apparent Distress HEENT: Present: PERRL, Mucus Membranes Moist Neck: Present: Supple Neck, Midline Trachea, No Masses, No Bruit Cardiac: Present: Reg Rate and Rhythm, No Murmur Lungs: Present: Normal Breath Sounds, No Wheeze, Rales, Rhonchi Neuro: Present: Motor Function Intact, Sensory Function Intact. Absent: Numbness, Resting Tremor, Essential Tremor Abdomen: Present: Soft, Active Bowel Sounds, Non-Tender, Other (Protuberant) Skin: Absent: Rash, Suspicious Lesions Musculoskeletal: Present: No Pain, Normal Range of Motion Gait: Present: Normal Gait Extremities: Present: Normal Gait, No Edema, Normal Upper Extr. Pulses, Normal Lower Extr. Pulses Result/EKG - Labs CBC & BMP: 11/02/16 17:59 11/02/16 17:59 Lab Results: I have reviewed the past 24 hour labs Specialty Discharge - Follow Up or Referrals Follow up with: Manjinder Diaz MD [Physician] - (Call to make a one month follow-up appointment.) Ethan Gomez Jr. [Physician] - (Call to make a follow-up appointment.) Sara Jesus DO [Physician] - 12/15/16 1:00 pm (as scheduled) I, Radha Royal MD, personally performed the services described in this documentation, ascribed by Jocelyn Ko RN in my presence, and it is both accurate and complete [id number] .
--- NOTE | 2016-11-04 17:31 | Neurology Consult Note ---
History of Present Illness History of present illness: 35 years old right-handed -[place] lady with past medical history significant for hypertension , 2 weeks, ago underwent and had a spinal anesthesia admitted the hospital with constant headaches. She was found to have significantly high blood pressure with systolic in 200s and diastolic in 105-110. She reported headaches across the head and was 10 out of 10 yesterday. Prior to she was to get headache 2 times per week. She thought it was sinus headaches and never sought any medical advice. During the headaches resolved completely and she developed headache again significantly high blood pressure. Blood pressure is under better control now so does her headaches. Her headaches are down to 2-3/10. No nausea vomiting but does have some photophobia. CT of the head reveals no acute abnormalities. Home Medications Medication Instructions Recorded Confirmed Type Docusate Sodium Cap [Colace Cap] 200 mg PO QAM 09/22/16 11/02/16 History Ibuprofen Tab [Motrin Tab] 800 mg PO Q6H PRN #30 tablet 10/19/16 11/02/16 Rx oxyCODONE/ACETAMINOPHEN 5-325 2 tablet PO Q6H PRN #30 tablet 10/19/16 11/02/16 Rx [Percocet 5-325] Albuterol Inhaler [Proventil 1 puff INH Q4H PRN 10/23/16 11/02/16 History Inhaler] Metoprolol Succinate Xl [Toprol Xl] 50 mg PO QAM 10/23/16 11/02/16 History Noh376/Iron/l-Mefol/Omega3/Dha 1 each PO QAM 10/23/16 11/02/16 History [ Plus-Dha Combo Pack] hydroCHLOROthiazide 12.5 mg PO DAILY #20 capsule 10/23/16 11/02/16 Rx [Hydrochlorothiazide] Acetaminophen Tab [Tylenol Tab] 1,000 mg PO Q8HR 11/02/16 11/02/16 History Allergies Allergy/AdvReac Type Severity Reaction Status Date / Time clindamycin [From Cleocin] Allergy RASH Verified 10/17/16 08:02 fish oil Allergy Unknown/Unable Verified 10/23/16 09:44 to obtain 12 point system: reviewed and no additional remarkable complaints except as stated Medical,Surgical,& Family Hx - Medical History Cardio: History of: Hypertension, Cardiovascular Problems (PSVT, PAC, PULMONARY HTN, SLEEP APNEA) No history of: CO Neurology: No history of: Migraine, Seizures HEENT: History of: Eye Problem (glasses for nearsightedness) Endocrine: History of: Thyroid Disorder (THYROID NODULE) No history of: Diabetes Mellitus (IDDM) Respiratory: History of: Asthma (Uses Proventil PRN), Pulmonary Hypertension ( DIAGNOSED DURING THIS ) No history of: Pulmonary Embolism Genitourinary: History of: Problems (states sometimes has bladder spasms) Hematology: No history of: Blood Transfusion Reaction Reproductive: History of: Abnormal Pap Smear, Ovarian Cysts, Reproductive Problems (uterine fibroid) Other: History of: Miscellaneous Medical Problems (excessive daytime sleepiness , sleep apnea) No history of: Anesthesia Reactions, HIV, MRSA - Surgical History Reproductive Surgeries: Surgical HX of;: Section - Family History Family History: Reports;: Family Cancer (BREAST CANCER MOTHER , MGM, AUNT), Family Diabetes (FATHER, PATERNAL UNCLE, COUSINS), Family Hypertension (father) , Additional Family History (Cousin from meningitis 2 months post-) - Social History Smoking Status: Never smoker Frequency of Alcohol Use: None Type of Drug Use: None Exam - Constitutional Vitals: Period Temp Pulse Resp BP Sys/Adam Pulse Ox Last 24 Hr 97.3 F-98.7 F 61-90 18-20 113-141/69-82 98-98 Exam: GENERAL: Patient is in no acute distress. NECK: Neck is supple. There is no JVD. No carotid bruits present. No thyroid masses. CVS: First and second heart sounds are normal. There is no S3 present. Regular rate and rhythm. RESPIRATORY: Lungs are clear to auscultation without any rales or rhonchi. ABDOMEN: Soft and non-tender. Bowel sounds are present. There is no hepatosplenomegaly. EXT: There is no palpable edema. Peripheral pulses are present. Skin: No rashes Central Nervous system: General: Alert, awake and Oriented x 3 Speech: Fluent Comprehension: Intact and normal Facial expressions: Normal Cranial Nerves: CN1/Olfactory: Normal CN II/ Optic: Normal, Visual Ahumada unreliable CN III, and : XENA & EOMI CN V: Normal & intact CN VII: face is symmetric CNVIII: Normal CN XI/X/XI/XII: Intact and Normal Motor: Bulk and Tone is normal. Strength in the right 5/5 Strength in the left 5/5 Sensory: Grossly intact for all the modalities of PP, LT and temp sense Reflexes: 1+ and symmetrical Cerebellar function: Normal finger to nose and heel to morgan testing. Toes: Equivocal Gait: Normal heel to heel and toe to toe and tandem walk. Results - Labs CBC & BMP: 11/02/16 17:59 11/02/16 17:59 Assessment and Plan (1) Chronic migraine Status: Acute Assessment and plan: Acute on chronic migraine completed by hypertension Agree with aggressive blood pressure control at this point. This will also help in headache prevention Hold off any further intervention from neuro standpoint since patient is doing much better and wants to go home. Current Visit: Yes (2) hypertension Status: Acute Assessment and plan: This is much better now with current blood pressure is 120/69 Okay to go home from neuro stand Follow-up in 4-6 if headache persist Current Visit: Yes Specialty Discharge - Follow Up or Referrals Follow up with: Manjinder Diaz MD [Physician] - (Call to make a one month follow-up appointment.) Ethan Gomez Jr. [Physician] - (Call to make a follow-up appointment.) Sara Jesus DO [Physician] - 12/15/16 1:00 pm (as scheduled)
== END 2016-11-04 17:36 | disposition home or self-care (01) | DRG 561 ==
LOC: N.ED 17:25 → N.OB 17:52
PROVIDERS: ADMIT Obstetrics & Gynecology; ATTEND Obstetrics & Gynecology